=== PATIENT | female | born 1985 | race Caucasian/White ===

== ENCOUNTER 2017-12-05 16:35 | Emergency (ER) | END 2017-12-05 17:39 | disposition home or self-care (01) ==

== ENCOUNTER 2018-09-22 19:49 | Emergency (ER) | payer SELFPAY ==
[~2018-09-22] VITALS: Wt 92.8 kg
[~2018-09-22 19:49] MED LIST: ALBU8.5H8 INH; AMOX1TAB10 PO; HYDR-4011 PO; HYDR-843 PO; LEVA15HF6 INH; PRED20TA PO
== END 2018-09-23 02:01 | disposition left against medical advice (07) ==
LOC: FTE 19:49
DX: Z53.21 Procedure and treatment not carried out due to patient leaving prior to being seen by health care provider (principal)

== ENCOUNTER 2018-11-02 22:03 | Emergency (ER) | payer MEDICAID, OTHER ==
[~2018-11-02] VITALS: Ht 167.6 cm; Wt 94.4 kg
[2018-11-02 22:06] VITALS: Ht 167.6 cm; Wt 94.4 kg
[2018-11-02] MEDS ORDERED: ALBUTEROL 0.083% (NEB) 2.5 MG/3 ML AMP HHN STA (22:16)
--- NOTE | 2018-11-02 22:17 | ERD ---
ER Documentation Chief Complaint Chief Complaint worsened sob x3 hrs. hx asthma. inhalers ineffective. HPI This is a 32-year-old female who presented with complaints of shortness of breath, wheezing for about 3 hours. Stated that she has history of asthma. Stated that her inhalers are not working. LMP: Last month. A0. Denies headache, head injury, loss of consciousness, dizziness, neck pain, neck stiffness, throat pain, difficulty swallowing, difficulty breathing lying flat, shoulder pain, chest pain, back pain, abdominal pain, nausea, vomiting, constipation, diarrhea, urinary symptoms, or possibility being , loss of bowel and bladder control, trauma, injury, falls, difficulty walking due to pain, numbness or tingling sensation, calf pain, recent travel, recent major surgery in the last 3 weeks, calf pain, recent long travel, recent exposure to any illness, recent antibiotic use in the last 3 months, fever, chills, seizures. Past medical history: Asthma. Surgical history: Social: Denies smoking, use of alcoholic beverages, use of illegal drugs. ROS All systems reviewed and are negative except as per history of present illness. Medications Home Meds Active Scripts Benzonatate* (Tessalon Perle*) 100 Mg Capsule, 100 MG PO Q8H PRN for COUGH, #15 CAP Prov:CONCHITA KHAN 11/02/18 Prednisone* (Prednisone*) 20 Mg Tab, 40 MG PO DAILY for 4 Days, TAB Prov:CONCHITA KHAN 11/02/18 Albuterol Sulfate* (Proair HFA*) 8.5 Gm Hfa.aer.ad, 2 PUFF INH Q4H PRN for WHEEZING AND SOB, #1 INHALER Prov:CONCHITA KHAN 11/02/18 Hydrocodone/Acetaminophen (Gray 5-325 Tablet) 1 Each Tablet, 1 TAB PO Q6H PRN for PAIN, #7 TAB Prov:DEE BOSS PA-C 12/05/17 Amoxicillin/Potassium Clav (Amox-Clav 875-125 mg Tablet) 875-125 mg Tab, 1 TAB PO BID for 10 Days, #20 TAB Prov:DEE BOSS PA-C 12/05/17 Prednisone* (Prednisone*) 20 Mg Tab, 40 MG PO DAILY for 4 Days, TAB Prov:TRUONG FONTENOT PA-C 04/07/16 Albuterol Sulfate* (Proair HFA*) 8.5 Gm Hfa.aer.ad, 2 PUFF INH Q4, #1 INHALER Prov:TRUONG FONTENOTChristopher PEARCE 04/07/16 Hydroxyzine Hcl* (Hydroxyzine Hcl*) 25 Mg Tablet, 25 MG PO Q8H PRN for ITCHING, #30 TAB Prov:BRIANNA INTERIANO PA-C 06/04/15 Prednisone* (Prednisone*) 20 Mg Tab, 40 MG PO DAILY for 4 Days, TAB Prov:BRIANNA INTERIANO PA-C 06/04/15 Reported Medications Levalbuterol* (Xopenex* HFA) 15 Gm Inha, 2 PUFFS INH Q4H PRN for WHEEZING AND SOB, EA 05/23/14 Allergies Allergies: Coded Allergies: No Known Drug Allergy (Unverified Allergy, Unknown, 11/02/18) PMhx/Soc History of Surgery: Yes (GALL BLADDER, TUBAL) Anesthesia Reaction: No Hx Neurological Disorder: No Hx Respiratory Disorders: Yes (ASTHMA) Hx Cardiac Disorders: No Hx Psychiatric Problems: No Hx Miscellaneous Medical Probl: No Hx Alcohol Use: Yes (socially) Hx Substance Use: No Hx Tobacco Use: No Physical Exam Vitals Vital Signs Date Temp Pulse Resp B/P (MAP) Pulse Ox O2 O2 Flow FiO2 Time Delivery Rate 11/03/18 97.9 90 28 132/71 99 Room Air 00:20 (91) 11/02/18 67 24 98 21 23:20 11/02/18 97.8 99 28 141/88 100 22:06 (105) Physical Exam Const: No acute distress Head: Atraumatic Eyes: Normal Conjunctiva ENT: Normal External Ears, Nose and Mouth. Bilateral ears: TMs are not erythematous. No bleeding. No discharge. No hearing loss. No mastoid tenderness. Nose: Midline. There is no frontal or maxillary sinus tenderness palpation. Throat/lips: No lip swelling. No tongue swelling. No drooling. A ble to control tongue movement. Uvula is midline and nondisplaced. Tonsils are +1 bilaterally without redness without exudates. Tolerating secretions. Patent airway. Speaks full and clear sentences. No tripoding. Neck: Full range of motion. No meningismus. No nuchal rigidity. No signs of meningeal irritation. Resp: No accessory muscle use in breathing. Wheezing bilaterally. Cardio: Regular rate and rhythm, no murmurs Abd: Soft, non tender, non distended. Normal bowel sounds Skin: No petechiae or rashes. No vesicular lesions. No skin tenting. No signs of severe dehydration. Back: No midline or flank tenderness Ext: No cyanosis, or edema Neur: Awake and alert. No neurological deficit. Psych: Normal Mood and Affect Results 24 hrs Current Medications Medications Dose Sig/Brando Start Time Status Last (Trade) Ordered Route PRN Stop Time Admin Dose Reason Admin Albuterol 5 mg ONCE STAT 11/02/18 DC 11/02/18 (Proventil HHN 22:16 23:16 0.083% (Neb)) 11/02/18 22:17 Ipratropium 0.5 mg ONCE ONCE 11/02/18 DC 11/02/18 [place] [facility] 22:30 23:16 (Atrovent 11/02/18 22:31 0.02% (Neb)) 125 mg ONCE ONCE 11/02/18 DC 11/02/18 Methylprednis IM 22:30 22:30 olone Sodium 11/02/18 22:31 Succinate (Solu-Medrol) Procedures/MDM Diagnostic tests: Clinical exam. Treatment: Albuterol and Atrovent breathing treatment. Solu-Medrol IM. Re-evaluation: No signs of airway obstructions. No tripoding. No accessory muscle use in breathing. Lung sounds are clear to auscultation. Speaks full and clear sentences. Color appears normal for ethnicity. Stated that she feels much better at this time and that she is ready to go home. Differential diagnosis I have low suspicion for airway obstruction, anaphylactic shock, bronchospasm, pneumonia, airway obstruction. Final diagnosis: Asthma exacerbation. Prescription: Prednisone. Pro-air. Katerina Figueroa. Follow-up with PCP in the next 24-48 hours. Come back here in the emergency department for any new symptoms or any worsening symptoms. All questions and concerns were answered. Patient and family members verbalized understanding and agreed with plan of care. Hemodynamically stable on discharge. Departure Diagnosis: Primary Impression: Asthma with acute exacerbation Condition: Stable Additional Instructions: Follow-up with PCP in the next 24-48 hours. Come back here in the emergency department for any new symptoms or any worsening symptoms. CONCHITA KHAN Nov 02, 2018 22:17
[2018-11-02] MEDS ORDERED: ALBU8.5H8 INH (22:20)
[2018-11-02] MEDS ORDERED: PRED20TA PO (22:20)
[2018-11-02] MEDS ORDERED: BENZ-6 PO (22:21)
[2018-11-02] MEDS ORDERED: METHYLPREDNISOLONE 125 MG INJ IM ONE (22:30)
[2018-11-02] MEDS ORDERED: IPRATROPIUM (NEB) 0.5 MG/2.5 ML AMP HHN ONE (22:30)
[2018-11-03 00:20] VITALS: BP 132/71; PULSE 90; RESP 28
== END 2018-11-03 00:25 | disposition home or self-care (01) ==
LOC: FTE 22:03
DX: J45.901 Unspecified asthma with (acute) exacerbation (principal)
CPT/HCPCS: 94664; 96372; J2930; Z7502; Z7610